=== PATIENT | female | born 1975 | race Caucasian/White ===

== ENCOUNTER 2018-01-14 05:13 | Inpatient (IN) | payer OTHER ==
[2018-01-11 14:51] LABS: BASOPHILS # (AUTO) 0.2 X10'3 (0-0.2); BASOPHILS % (AUTO) 1.8 % (0-1); EOSINOPHILS # (AUTO) 0.1 X10'3 (0-0.9); EOSINOPHILS % (AUTO) 1.4 % (0-6); LYMPHOCYTES % (AUTO) 22.1 % (21-51); MEAN CORPUSCULAR HEMOGLOBIN 27.3 PG (27.0-31.0); MEAN CORPUSCULAR HGB CONC 33.7 % (33.0-36.5); MEAN PLATELET VOLUME 7.4 FL (7.4-10.4); MONOCYTES # (AUTO) 1.3 X10'3 (0-0.9); MONOCYTES % (AUTO) 14.6 % (2-12); NEUTROPHILS # (AUTO) 5.3 X10'3 (1.8-7.7); NEUTROPHILS % (AUTO) 60.1 % (42-75); PRE OP HEMOGLOBIN 13.1 g/dL (12.0-16.0); PRE OP PLATELET COUNT 430 X10'3 (140-440); RED BLOOD COUNT 4.82 X10'6 (4.20-5.60); RED CELL DISTRIBUTION WIDTH 14.2 % (11.5-14.5)
[2018-01-11 14:59] LABS: PRE OP PARTIAL THROMB. TIME 26 SECONDS (22-35); PROTHROMBIN TIME 10.7 SECONDS (9.0-12.0)
[2018-01-11 15:05] LABS: ALBUMIN 3.6 G/DL (3.4-5.0); ALBUMIN/GLOBULIN RATIO 0.7 (1.1-1.5); ALKALINE PHOSPHATASE 114 IU/L (46-116); BLOOD UREA NITROGEN 6 MG/DL (7-18); BUN/CREATININE RATIO 8.8 (6.6-38.0); CALCIUM 9.4 MG/DL (8.5-10.1); CHLORIDE 102 MMOL/L (99-107); CREATININE 0.68 MG/DL (0.40-0.90); PRE OP ALT 29 U/L (30-65); PRE OP ANION GAP 12 (8-16); PRE OP AST 26 U/L (10-37); PRE OP BILIRUB, TOTAL 0.8 MG/DL (0.0-1.0); PRE OP GLUCOSE 85 MG/DL (70-104); PRE OP SODIUM 138 MMOL/L (135-145); TOTAL CARBON DIOXIDE 24.1 MMOL/L (24-32); TOTAL PROTEIN 8.8 G/DL (6.4-8.2); eGFR > 90 ML/MIN
[2018-01-11 15:06] LABS: PRE OP POTASSIUM 3.9 MMOL/L (3.4-5.1)
[2018-01-14] VITALS (17 sets, daily range): BP systolic 95–134; BP diastolic 52–94
[~2018-01-14] VITALS: Ht 167.6 cm; Wt 78.2 kg
[~2018-01-14 05:13] MED LIST: NO HOME MEDS; ringers solution, lacted 1,000 ML IV SCH
[2018-01-14] MEDS ORDERED: famotidine 20mg tablet PO ONE (05:30)
[2018-01-14] MEDS ORDERED: LIDOcaine 1% (10mg/ml) 2ml vial ONE (05:44)
[2018-01-14] MEDS ORDERED: ROPIVAcaine 0.5% (5mg/ml) 30ml vial ONE ×2 (06:43→07:12)
[2018-01-14] MEDS ORDERED: triamcinolone acetonide 40mg/ml inj ONE (06:43)
[2018-01-14] MEDS ORDERED: sevoflurane 250ml liquid IH ONE (07:12)
[2018-01-14] MEDS ORDERED: cloNIDine hcl/PF 100mcg/ml inj ONE (07:12)
[2018-01-14] MEDS ORDERED: fentaNYL/PF 50MCG/1 ML 2ML syringe ONE (07:14)
[2018-01-14] MEDS ORDERED: propofol inj 20 ML IV ONE (07:15)
[2018-01-14] MEDS ORDERED: LIDOcaine 2% (20mg/ml) 5ml vial ONE (07:15)
[2018-01-14] MEDS ORDERED: midazolam 2 mg/2 ml injection ONE (07:15)
[2018-01-14] MEDS ORDERED: ringers solution, lacted 1,000 ML IV SCH (07:19)
[2018-01-14] MEDS ORDERED: fentaNYL/PF 50MCG/1 ML 2ML syringe IV PRN ×2 (07:20)
[2018-01-14] MEDS ORDERED: hydrALAZINE 20mg/ml inj. IV PRN (07:20)
[2018-01-14] MEDS ORDERED: labetalol 20mg/4ml (5mg/ml) syringe IV PRN (07:20)
[2018-01-14] MEDS ORDERED: ondansetron/PF 4mg/2ml inj IV PRN ×2 (07:20→07:50)
[2018-01-14] MEDS ORDERED: morphine 4 MG/ML inj SYRINge IV PRN ×2 (07:20)
[2018-01-14] MEDS ORDERED: diphenhydrAMINE 25mg capsule PO PRN ×2 (07:50)
[2018-01-14] MEDS ORDERED: acetaminophen 325mg tablet PO PRN (07:50)
[2018-01-14] MEDS ORDERED: bisacodyl 10mg suppository rectal RC PRN (07:50)
[2018-01-14] MEDS ORDERED: magnesium hydroxide 30ml (MOM) UD suspension PO PRN (07:50)
[2018-01-14] MEDS ORDERED: HYDROmorphone 1 mg/ml syringe IV PRN ×2 (07:50)
[2018-01-14] MEDS ORDERED: oxyCODONE IR 5mg (immed. release) tablet PO PRN (07:50)
[2018-01-14] MEDS: ROPIVACAINE IJ SCH (09:31)
[2018-01-14] MEDS: NORMAL SALINE IJ SCH (09:31)
[2018-01-14] MEDS: ketorolac tromethamine 15mg/ml inj. IV SCH ×3 (10:50→20:09)
[2018-01-14] MEDS: aspirin 325mg tablet PO SCH (10:51)
[2018-01-14] MEDS: acetaminophen 325mg tablet PO SCH ×3 (10:52→20:09)
[2018-01-14] MEDS: gabapentin 300mg capsule PO SCH ×3 (10:52→20:09)
[2018-01-14] MEDS: oxyCODONE IR 5mg (immed. release) tablet PO PRN (14:18)
[2018-01-14] MEDS: sennosides 8.6mg tablet PO SCH (20:09)
[2018-01-15] MEDS: acetaminophen 325mg tablet PO SCH ×4 (01:44→20:39)
[2018-01-15] MEDS: ketorolac tromethamine 15mg/ml inj. IV SCH (01:44)
[2018-01-15 02:05] VITALS: BP 134/75
[2018-01-15] MEDS: oxyCODONE IR 5mg (immed. release) tablet PO PRN (05:29)
[2018-01-15 06:00] VITALS: BP 112/75
[2018-01-15] MEDS: aspirin 325mg tablet PO SCH (08:10)
[2018-01-15] MEDS: gabapentin 300mg capsule PO SCH ×3 (08:10→20:38)
[2018-01-15 10:00] VITALS: BP 132/77
[2018-01-15 14:00] VITALS: BP 130/70
[2018-01-15 18:00] VITALS: BP 135/78
[2018-01-15] MEDS: celeCOXIB 100mg capsule PO SCH (20:38)
[2018-01-15] MEDS: sennosides 8.6mg tablet PO SCH (20:40)
[2018-01-15 22:00] VITALS: BP 139/88
[2018-01-15] MEDS: ROPIVACAINE IJ SCH (22:12)
[2018-01-15] MEDS: NORMAL SALINE IJ SCH (22:12)
[2018-01-16] MEDS: acetaminophen 325mg tablet PO SCH (02:00)
[2018-01-16 05:00] VITALS: BP 127/86
[2018-01-16] MEDS ORDERED: acetaminophen 325mg tablet PO PRN (07:50)
[2018-01-16] MEDS: aspirin 325mg tablet PO SCH (08:39)
[2018-01-16] MEDS: gabapentin 300mg capsule PO SCH ×3 (08:39→20:56)
[2018-01-16] MEDS: celeCOXIB 100mg capsule PO SCH ×2 (08:39→20:56)
[2018-01-16 10:00] VITALS: BP 136/71
[2018-01-16] MEDS: oxyCODONE IR 5mg (immed. release) tablet PO PRN ×3 (12:02→23:21)
[2018-01-16 18:30] VITALS: BP 123/98
[2018-01-16] MEDS: sennosides 8.6mg tablet PO SCH (21:00)
[2018-01-16 22:00] VITALS: BP 140/77
[2018-01-17] MEDS: oxyCODONE IR 5mg (immed. release) tablet PO PRN ×2 (03:50→12:25)
[2018-01-17 06:00] VITALS: BP 140/72
[2018-01-17] MEDS ORDERED: cpm (06:47)
[2018-01-17] MEDS ORDERED: HYDR-565 PO (07:34)
[2018-01-17] MEDS: aspirin 325mg tablet PO SCH (08:25)
[2018-01-17] MEDS ORDERED: HYDROcodone/acetaminophen 10/325mg tab PO PRN ×2 (08:25)
[2018-01-17] MEDS: gabapentin 300mg capsule PO SCH ×2 (08:27→12:25)
[2018-01-17] MEDS: celeCOXIB 100mg capsule PO SCH (08:27)
[2018-01-17 10:00] VITALS: BP 139/92
[2018-01-17] MEDS: ROPIVACAINE IJ SCH (11:45)
[2018-01-17] MEDS: NORMAL SALINE IJ SCH (11:45)
== END 2018-01-17 13:10 | disposition home or self-care (01) | DRG 560 ==
LOC: PAS 05:13 → ORTHO 4S 07:50
PROVIDERS: ADMIT Orthopaedic Surgery; ATTEND Orthopaedic Surgery
PROC: 3E0U33Z Introduction of Anti-inflammatory into Joints, Percutaneous Approach (ICD-10-PCS; 2018-01-14)
PROC: 3E0U3BZ Introduction of Anesthetic Agent into Joints, Percutaneous Approach (ICD-10-PCS; 2018-01-14)
PROC: 0YH Anatomical Regions, Lower Extremities, Insertion (ICD-10-PCS; 2018-01-14)
PROC: 3E0T3BZ Introduction of Anesthetic Agent into Peripheral Nerves and Plexi, Percutaneous Approach (ICD-10-PCS; 2018-01-14)
PROC: 0SWCXJZ Revision of Synthetic Substitute in Right Knee Joint, External Approach (ICD-10-PCS; principal; 2018-01-14 07:17)
DX: T84.82XA Fibrosis due to internal orthopedic prosthetic devices, implants and grafts, initial encounter (principal); D68.0 Von Willebrand disease; M25.661 Stiffness of right knee, not elsewhere classified; Y83.8 Other surgical procedures as the cause of abnormal reaction of the patient, or of later complication, without mention of misadventure at the time of the procedure; Z90.49 Acquired absence of other specified parts of digestive tract; Z98.891 History of uterine scar from previous surgery; Z56.0 Unemployment, unspecified; Z88.2 Allergy status to sulfonamides; Z79.899 Other long term (current) drug therapy; Z82.49 Family history of ischemic heart disease and other diseases of the circulatory system; Y92.89 Other specified places as the place of occurrence of the external cause
CPT/HCPCS: 36415; 80053; 85025; 85610; 85730; 87070; 97110; 97116; 97162; 97530; A6212; A6257; A6449; J0735; J1885; J2001; J2250; J2704; J2795; J3010; J3301; J3490; J7030; J7120

== ENCOUNTER 2018-07-14 08:38 | Inpatient (IN) | payer OTHER ==
[2018-07-12 11:16] LABS: BASOPHILS % (AUTO) 0.6 % (0-1); EOSINOPHILS # (AUTO) 0.2 X10'3 (0-0.9); EOSINOPHILS % (AUTO) 2.8 % (0-6); LYMPHOCYTES # (AUTO) 1.7 X10'3 (1.1-4.8); LYMPHOCYTES % (AUTO) 27.4 % (21-51); MEAN CORPUSCULAR HEMOGLOBIN 26.5 PG (27.0-31.0); MEAN CORPUSCULAR HGB CONC 32.5 % (33.0-36.5); MEAN CORPUSCULAR VOLUME 81.4 FL (78-98); MEAN PLATELET VOLUME 7.3 FL (7.4-10.4); MONOCYTES # (AUTO) 0.8 X10'3 (0-0.9); MONOCYTES % (AUTO) 13.1 % (2-12); NEUTROPHILS # (AUTO) 3.5 X10'3 (1.8-7.7); NEUTROPHILS % (AUTO) 56.1 % (42-75); PRE OP HEMATOCRIT 40.7 % (35.0-45.0); PRE OP HEMOGLOBIN 13.3 g/dL (12.0-16.0); PRE OP PLATELET COUNT 435 X10'3 (140-440); RED BLOOD COUNT 5.01 X10'6 (4.20-5.60); RED CELL DISTRIBUTION WIDTH 15.8 % (11.5-14.5)
[2018-07-12 11:31] LABS: ALBUMIN 3.8 G/DL (3.4-5.0); ALBUMIN/GLOBULIN RATIO 0.8 (1.1-1.5); ALKALINE PHOSPHATASE 96 IU/L (46-116); BLOOD UREA NITROGEN 8 MG/DL (7-18); BUN/CREATININE RATIO 10.1 (6.6-38.0); CALCIUM 9.2 MG/DL (8.5-10.1); CHLORIDE 102 MMOL/L (99-107); CREATININE 0.79 MG/DL (0.40-0.90); PRE OP ALT 37 U/L (30-65); PRE OP ANION GAP 9 (8-16); PRE OP AST 25 U/L (10-37); PRE OP BILIRUB, TOTAL 0.8 MG/DL (0.0-1.0); PRE OP GLUCOSE 98 MG/DL (70-104); PRE OP POTASSIUM 4.2 MMOL/L (3.4-5.1); PRE OP SODIUM 139 MMOL/L (135-145); TOTAL CARBON DIOXIDE 28.4 MMOL/L (24-32); TOTAL PROTEIN 8.6 G/DL (6.4-8.2); eGFR 80 ML/MIN
[2018-07-12 11:33] LABS: PRE OP INR 1.1 INR; PRE OP PROTIME 10.8 SECONDS (9.0-12.0)
[2018-07-12 11:49] LABS: HCG SERUM QL NEGATIVE
[2018-07-14] VITALS (18 sets, daily range): BP systolic 100–132; BP diastolic 59–93
[~2018-07-14] VITALS: Ht 167.6 cm; Wt 81.9 kg
[~2018-07-14 08:38] MED LIST changes: +cefazolin/dext.iso 2gm/50ml 50 ML IV ONE; +desmopressin inj. 25 MCG in normal saline 100ml IV soln 93.75 ML IV ONE; +famotidine 20mg tablet PO ONE; +tranexamic acid inj. 1,000 MG in normal saline 100ml IV soln 90 ML IV ONE; +vancomycin inj 1,500 MG in normal saline 300ml IV soln IV ONE
[2018-07-14] MEDS ORDERED: LIDOcaine 1% (10mg/ml) 2ml vial ONE (08:43)
[2018-07-14] MEDS ORDERED: tranexamic acid inj. 1,000 MG in normal saline 100ml IV soln 100 ML IV ONE (09:45)
[2018-07-14] MEDS ORDERED: [UNRECOGNIZED DRUG - REMARK] IV NR (10:00)
[2018-07-14] MEDS ORDERED: vancomycin 1,000mg inj ONE (10:52)
[2018-07-14] MEDS ORDERED: ROPIVAcaine 0.5% (5mg/ml) 30ml vial ONE ×2 (10:52→16:08)
[2018-07-14] MEDS ORDERED: ketorolac trometh. 30mg/ml inj. ONE (10:52)
[2018-07-14] MEDS ORDERED: fentaNYL/PF 50MCG/1 ML 2ML syringe ONE (12:43)
[2018-07-14] MEDS ORDERED: MIDAZolam 1mg/ml 10ml vial ONE (12:43)
[2018-07-14] MEDS ORDERED: propofol inj 20 ML IV ONE ×2 (13:10→16:08)
[2018-07-14] MEDS ORDERED: ringers solution, lacted 1,000 ML IV SCH (15:18)
[2018-07-14] MEDS ORDERED: meperidine/PF 25mg/ml syringe IV PRN ×3 (15:20)
[2018-07-14] MEDS ORDERED: morphine 4 MG/ML inj SYRINge IV PRN ×2 (15:20)
[2018-07-14] MEDS ORDERED: proCHLORperazine 10 MG/2 ml inj IV PRN (15:20)
[2018-07-14] MEDS ORDERED: ondansetron/PF 4mg/2ml inj IV PRN (15:20)
[2018-07-14] MEDS ORDERED: bisacodyl 10mg suppository rectal RC PRN (15:45)
[2018-07-14] MEDS ORDERED: diphenhydrAMINE 25mg capsule PO PRN ×2 (15:45)
[2018-07-14] MEDS ORDERED: oxyCODONE IR 5mg (immed. release) tablet PO PRN (15:45)
[2018-07-14] MEDS ORDERED: acetaminophen 325mg tablet PO PRN (15:45)
[2018-07-14] MEDS ORDERED: HYDROmorphone 1 mg/ml syringe IV PRN ×2 (15:45)
[2018-07-14] MEDS ORDERED: magnesium hydroxide 30ml (MOM) UD suspension PO PRN (15:45)
[2018-07-14] MEDS: ROPIVACAINE HCL/PF PAIN PUMP 400 ML IJ SCH ×2 (16:45→19:01)
[2018-07-14] MEDS: ceFAZolin 1GM/D5W- ADD-VANTAGE 50 ML IV SCH (18:29)
[2018-07-14] MEDS ORDERED: tranexamic acid inj. 800 MG in normal saline 100ml IV soln 100 ML IV ONE (18:45)
[2018-07-14] MEDS: ondansetron/PF 4mg/2ml inj IV PRN (19:58)
[2018-07-14] MEDS ORDERED: vancomycin/NS 1 GM ADD-VANTAGE 250 ML IV SCH (20:00)
[2018-07-14] MEDS: potassium cl 20mEq in 1/2 NS 1,000 ML IV SCH ×2 (20:04→23:43)
[2018-07-14] MEDS: acetaminophen 325mg tablet PO SCH (20:08)
[2018-07-14] MEDS: ketorolac tromethamine 15mg/ml inj. IV SCH (20:08)
[2018-07-14] MEDS: sennosides 8.6mg tablet PO SCH (20:28)
[2018-07-14] MEDS: gabapentin 300mg capsule PO SCH (20:28)
[2018-07-14] MEDS: oxyCODONE IR 5mg (immed. release) tablet PO PRN (22:51)
[2018-07-15] MEDS: ceFAZolin 1GM/D5W- ADD-VANTAGE 50 ML IV SCH (00:36)
[2018-07-15 02:00] VITALS: BP 107/62
[2018-07-15] MEDS: acetaminophen 325mg tablet PO SCH ×4 (02:22→20:15)
[2018-07-15] MEDS: ketorolac tromethamine 15mg/ml inj. IV SCH ×3 (02:22→15:01)
[2018-07-15] MEDS: oxyCODONE IR 5mg (immed. release) tablet PO PRN ×5 (04:56→21:08)
[2018-07-15] MEDS: potassium cl 20mEq in 1/2 NS 1,000 ML IV SCH (05:51)
[2018-07-15 06:00] VITALS: BP 115/88
[2018-07-15 06:30] LABS: BASOPHILS % (AUTO) 0.2 % (0-1); EOSINOPHILS % (AUTO) 0.2 % (0-6); LYMPHOCYTES # (AUTO) 1.2 X10'3 (1.1-4.8); LYMPHOCYTES % (AUTO) 11.7 % (21-51); MEAN CORPUSCULAR HEMOGLOBIN 26.9 PG (27.0-31.0); MEAN CORPUSCULAR HGB CONC 33.3 % (33.0-36.5); MEAN CORPUSCULAR VOLUME 80.5 FL (78-98); MEAN PLATELET VOLUME 7.2 FL (7.4-10.4); MONOCYTES # (AUTO) 0.9 X10'3 (0-0.9); MONOCYTES % (AUTO) 9.1 % (2-12); NEUTROPHILS # (AUTO) 8.2 X10'3 (1.8-7.7); NEUTROPHILS % (AUTO) 78.8 % (42-75); PLATELET COUNT 265 X10'3 (140-440); RED BLOOD COUNT 3.35 X10'6 (4.20-5.60); WHITE BLOOD COUNT 10.4 X10'3 (4.5-11.0)
[2018-07-15] MEDS: ondansetron/PF 4mg/2ml inj IV PRN ×2 (06:46→12:49)
[2018-07-15 07:03] LABS: ANION GAP 7 (8-16); CHLORIDE 98 MMOL/L (99-107); POTASSIUM 3.8 MMOL/L (3.5-5.1); SODIUM 129 MMOL/L (135-145); TOTAL CARBON DIOXIDE 23.6 MMOL/L (24-32)
[2018-07-15] MEDS ORDERED: metoclopramide 5 mg/ml inj IV ONE (08:15)
[2018-07-15] MEDS: gabapentin 300mg capsule PO SCH ×3 (08:54→20:15)
[2018-07-15] MEDS: aspirin 325mg tablet PO SCH (08:54)
[2018-07-15 10:00] VITALS: BP 122/65
[2018-07-15 14:00] VITALS: BP 120/60
[2018-07-15] MEDS ORDERED: scopolamine 1.5mg patch.TD72 TD ONE (17:15)
[2018-07-15 18:00] VITALS: BP 138/79
[2018-07-15] MEDS: celeCOXIB 100mg capsule PO SCH (20:14)
[2018-07-15] MEDS: sennosides 8.6mg tablet PO SCH (20:14)
[2018-07-15 22:00] VITALS: BP 138/65
[2018-07-16] MEDS: acetaminophen 325mg tablet PO SCH ×3 (01:13→14:29)
[2018-07-16] MEDS: oxyCODONE IR 5mg (immed. release) tablet PO PRN ×5 (01:13→22:18)
[2018-07-16 06:00] VITALS: BP 110/82
[2018-07-16 06:36] LABS: BASOPHILS % (AUTO) 0.1 % (0-1); EOSINOPHILS # (AUTO) 0.2 X10'3 (0-0.9); EOSINOPHILS % (AUTO) 2.2 % (0-6); HEMATOCRIT 25.6 % (35.0-45.0); HEMOGLOBIN 8.6 g/dl (12.0-16.0); LYMPHOCYTES # (AUTO) 1.4 X10'3 (1.1-4.8); LYMPHOCYTES % (AUTO) 17.5 % (21-51); MEAN CORPUSCULAR HEMOGLOBIN 27.1 PG (27.0-31.0); MEAN CORPUSCULAR HGB CONC 33.7 % (33.0-36.5); MEAN CORPUSCULAR VOLUME 80.3 FL (78-98); MEAN PLATELET VOLUME 7.2 FL (7.4-10.4); MONOCYTES # (AUTO) 1.1 X10'3 (0-0.9); MONOCYTES % (AUTO) 13.6 % (2-12); NEUTROPHILS # (AUTO) 5.4 X10'3 (1.8-7.7); NEUTROPHILS % (AUTO) 66.6 % (42-75); PLATELET COUNT 267 X10'3 (140-440); RED BLOOD COUNT 3.19 X10'6 (4.20-5.60); RED CELL DISTRIBUTION WIDTH 15.1 % (11.5-14.5); WHITE BLOOD COUNT 8.1 X10'3 (4.5-11.0)
[2018-07-16] MEDS: celeCOXIB 100mg capsule PO SCH ×2 (08:14→22:16)
[2018-07-16] MEDS: gabapentin 300mg capsule PO SCH ×3 (08:14→22:16)
[2018-07-16] MEDS: aspirin 325mg tablet PO SCH (08:14)
[2018-07-16] MEDS ORDERED: acetaminophen 325mg tablet PO PRN (15:45)
[2018-07-16 18:00] VITALS: BP 129/61
[2018-07-16 22:00] VITALS: BP 136/84
[2018-07-16] MEDS: sennosides 8.6mg tablet PO SCH (22:16)
[2018-07-16] MEDS: ondansetron/PF 4mg/2ml inj IV PRN (22:37)
[2018-07-17] MEDS: oxyCODONE IR 5mg (immed. release) tablet PO PRN ×2 (02:06→05:49)
[2018-07-17 06:00] VITALS: BP 109/68
[2018-07-17 07:14] LABS: BASOPHILS % (AUTO) 0.1 % (0-1); EOSINOPHILS # (AUTO) 0.1 X10'3 (0-0.9); EOSINOPHILS % (AUTO) 1.5 % (0-6); HEMATOCRIT 29.6 % (35.0-45.0); HEMOGLOBIN 9.7 g/dl (12.0-16.0); LYMPHOCYTES # (AUTO) 0.9 X10'3 (1.1-4.8); LYMPHOCYTES % (AUTO) 11.5 % (21-51); MEAN CORPUSCULAR HEMOGLOBIN 26.6 PG (27.0-31.0); MEAN CORPUSCULAR HGB CONC 32.8 % (33.0-36.5); MEAN CORPUSCULAR VOLUME 81.2 FL (78-98); MEAN PLATELET VOLUME 7.5 FL (7.4-10.4); MONOCYTES # (AUTO) 0.9 X10'3 (0-0.9); MONOCYTES % (AUTO) 12.1 % (2-12); NEUTROPHILS # (AUTO) 5.6 X10'3 (1.8-7.7); NEUTROPHILS % (AUTO) 74.8 % (42-75); PLATELET COUNT 314 X10'3 (140-440); RED BLOOD COUNT 3.64 X10'6 (4.20-5.60); RED CELL DISTRIBUTION WIDTH 15.4 % (11.5-14.5); WHITE BLOOD COUNT 7.5 X10'3 (4.5-11.0)
[2018-07-17] MEDS: celeCOXIB 100mg capsule PO SCH (07:37)
[2018-07-17] MEDS: gabapentin 300mg capsule PO SCH ×2 (07:37→13:02)
[2018-07-17] MEDS: aspirin 325mg tablet PO SCH (07:38)
[2018-07-17 10:00] VITALS: BP 114/58
== END 2018-07-17 14:30 | disposition home or self-care (01) | DRG 467 ==
LOC: PAS IN 08:38 → EDSTATUS 15:00 → ORTHO 4S 17:35
PROVIDERS: ADMIT Orthopaedic Surgery; ATTEND Orthopaedic Surgery
PROC: 0SRV0J9 Replacement of Right Knee Joint, Tibial Surface with Synthetic Substitute, Cemented, Open Approach (ICD-10-PCS; 2018-07-14)
PROC: 3E0T3BZ Introduction of Anesthetic Agent into Peripheral Nerves and Plexi, Percutaneous Approach (ICD-10-PCS; 2018-07-14)
PROC: 8E0YXBZ Computer Assisted Procedure of Lower Extremity (ICD-10-PCS; 2018-07-14)
PROC: 8E0YXCZ Robotic Assisted Procedure of Lower Extremity (ICD-10-PCS; 2018-07-14)
PROC: 0S9C3ZZ Drainage of Right Knee Joint, Percutaneous Approach (ICD-10-PCS; 2018-07-14)
PROC: 0SPV0JZ Removal of Synthetic Substitute from Right Knee Joint, Tibial Surface, Open Approach (ICD-10-PCS; principal; 2018-07-14 12:38)
DX: T84.82XA Fibrosis due to internal orthopedic prosthetic devices, implants and grafts, initial encounter (principal); D62 Acute posthemorrhagic anemia; D68.9 Coagulation defect, unspecified; Z96.651 Presence of right artificial knee joint; M21.261 Flexion deformity, right knee; M25.661 Stiffness of right knee, not elsewhere classified; Z79.899 Other long term (current) drug therapy; Z88.2 Allergy status to sulfonamides; Z82.49 Family history of ischemic heart disease and other diseases of the circulatory system; Z72.89 Other problems related to lifestyle; Y92.89 Other specified places as the place of occurrence of the external cause
CPT/HCPCS: 36415; 80051; 80053; 84703; 85025; 85610; 85730; 87070; 87075; 87176; 97110; 97116; 97162; 97530; A7000; A9272; C1713; C1758; C1776; G0378; J0690; J1170; J1885; J2250; J2405; J2597; J2704; J2765; J2795; J3010; J3370; J3490; J7030; J7120

== ENCOUNTER 2022-05-14 07:24 | Day surgery (SDC) | payer MEDICAID ==
[2022-05-07 15:55] LABS: BASOPHILS % (AUTO) 0.6 % (0-1); EOSINOPHILS # (AUTO) 0.2 X10'3 (0-0.9); EOSINOPHILS % (AUTO) 3.7 % (0-6); LYMPHOCYTES # (AUTO) 2.2 X10'3 (1.1-4.8); MEAN CORPUSCULAR HEMOGLOBIN 26.6 PG (27.0-31.0); MEAN CORPUSCULAR HGB CONC 33.3 g/dL (33.0-36.5); MEAN CORPUSCULAR VOLUME 79.9 FL (78-98); MEAN PLATELET VOLUME 6.9 FL (7.4-10.4); MONOCYTES # (AUTO) 0.8 X10'3 (0-0.9); MONOCYTES % (AUTO) 14.3 % (2-12); NEUTROPHILS # (AUTO) 2.4 X10'3 (1.8-7.7); NEUTROPHILS % (AUTO) 43.4 % (42-75); PRE OP HEMATOCRIT 39.7 % (35.0-45.0); PRE OP HEMOGLOBIN 13.2 g/dL (12.0-16.0); PRE OP PLATELET COUNT 388 X10'3 (140-440); RED BLOOD COUNT 4.96 X10'6 (4.20-5.60); RED CELL DISTRIBUTION WIDTH 14.7 % (11.5-14.5)
[2022-05-07 16:04] LABS: CLARITY,URINE SLIGHTLY CLOUDY (Clear); GLUCOSE, URINE NEGATIVE (Neg); KETONES,URINE NEGATIVE (Neg); LEUKOCYTE ESTERASE ,URINE TRACE (Neg); NITRITES, URINE NEGATIVE (Neg); OCCULT BLOOD,URINE NEGATIVE (Neg); PROTEIN,URINE NEGATIVE (Neg); UROBILINOGEN,URINE 0.2 E.U/dL (0.2-1.0)
[2022-05-07 16:08] LABS: COLOR,URINE STRAW (Yellow); UA COLLECTION TYPE VOIDED
[2022-05-07 16:09] LABS: ALBUMIN 3.8 G/DL (3.4-5.0); ALBUMIN/GLOBULIN RATIO 0.8 (1.1-1.5); ALKALINE PHOSPHATASE 112 IU/L (46-116); BLOOD UREA NITROGEN 5 MG/DL (7-18); BUN/CREATININE RATIO 6.3 (6.6-38.0); CALCIUM 9.1 MG/DL (8.5-10.1); CHLORIDE 104 MMOL/L (99-107); CREATININE 0.79 MG/DL (0.40-0.90); PRE OP ALT 30 U/L (30-65); PRE OP ANION GAP 6 (8-16); PRE OP AST 30 U/L (10-37); PRE OP BILIRUB, TOTAL 0.6 MG/DL (0.0-1.0); PRE OP GLUCOSE 83 MG/DL (70-104); PRE OP SODIUM 137 MMOL/L (135-145); TOTAL CARBON DIOXIDE 27.2 MMOL/L (24-32); TOTAL PROTEIN 8.5 G/DL (6.4-8.2); eGFR 78 ML/MIN
[2022-05-07 16:16] LABS: PRE OP POTASSIUM 3.3 MMOL/L (3.4-5.1)
[2022-05-07 16:17] LABS: HCG SERUM QL NEGATIVE
[2022-05-07 16:25] LABS: SQUAMOUS EPITHELIAL CELL,UR MODERATE /LPF (FEW)
[2022-05-07 16:26] LABS: BACTERIA,URINE FEW /HPF (Neg); RBC,URINE 0-2 /HPF (0-2); WBC,URINE 0-4 /HPF (0-4)
[2022-05-14] VITALS (16 sets, daily range): BP systolic 123–154; BP diastolic 69–98
[~2022-05-14] VITALS: Ht 160 cm; Wt 81.5 kg
[~2022-05-14 07:24] MED LIST changes: +AMIT-189 PO; -NO HOME MEDS; +[UNRECOGNIZED DRUG - OTHER] SQ; +ceFOXitin 2GM-NS 100mL ADDvant 100 ML IV ONE; -cefazolin/dext.iso 2gm/50ml 50 ML IV ONE; -desmopressin inj. 25 MCG in normal saline 100ml IV soln 93.75 ML IV ONE; -tranexamic acid inj. 1,000 MG in normal saline 100ml IV soln 90 ML IV ONE; -vancomycin inj 1,500 MG in normal saline 300ml IV soln IV ONE
[2022-05-14 08:49] LABS: ISTAT ANION GAP 14 (8-12); ISTAT BUN 7 mg/dL (7-18); ISTAT CL 101 mmol/L (99-107); ISTAT CREATININE 0.7 mg/dL (0.6-1.1); ISTAT GLUCOSE 89 mg/dL (70-104); ISTAT HGB 13.9 g/dl (12.0-16.0); ISTAT Hct 41 %PCV (35-45); ISTAT IONIZED CALCIUM 1.22 mmol/L (1.03-1.32); ISTAT K 3.4 mmol/L (3.5-5.1); ISTAT NA 141 mmol/L (135-145); ISTAT TOTAL CO2 26 mmol/L (24-32); ISTAT eGFR > 90 ML/MIN
[2022-05-14] MEDS ORDERED: neomy sulf/polymyxin B sulf. GU irrigation 1ml amp IR ONE (08:52)
[2022-05-14] MEDS ORDERED: BUPIVAcaine/PF 2.5 mg/ml (0.25%) 30ml vial ONE (08:52)
[2022-05-14] MEDS ORDERED: vasoPRESSIN 20 units/ml inj. ONE (08:52)
[2022-05-14] MEDS ORDERED: glycopyrrolate 0.2mg/ml inj ONE (09:37)
[2022-05-14] MEDS ORDERED: propofol inj 20 ML IV ONE (09:37)
[2022-05-14] MEDS ORDERED: neostigmine methylsulfate 1 MG/ML 10ml vial ONE (09:37)
[2022-05-14] MEDS ORDERED: dexamethasone sod phosphate 4mg/ml inj. ONE (09:37)
[2022-05-14] MEDS ORDERED: ondansetron/PF 4mg/2ml inj ONE (09:37)
[2022-05-14] MEDS ORDERED: LIDOcaine 2% (20mg/ml) 5ml vial ONE (09:37)
[2022-05-14] MEDS ORDERED: rocuronium 10mg/ml inj IV ONE ×2 (09:37→11:02)
[2022-05-14] MEDS ORDERED: sevoflurane 250ml liquid IH ONE (10:10)
[2022-05-14] MEDS ORDERED: fentaNYL /PF 50mcg/ml 5ml ampule ONE (10:11)
[2022-05-14] MEDS ORDERED: midazolam 1 mg/ML 2ml injection ONE (10:11)
[2022-05-14] MEDS ORDERED: labetalol 20mg/4ml (5mg/ml) syringe IV ONE ×2 (10:26→11:20)
[2022-05-14] MEDS ORDERED: labetalol 20mg/4ml (5mg/ml) syringe IV PRN (11:15)
[2022-05-14] MEDS ORDERED: fentaNYL/PF 50MCG/1 ML 2ML syringe IV PRN ×2 (11:15)
[2022-05-14] MEDS ORDERED: morphine 4 MG/ML inj SYRINge IV PRN (11:15)
[2022-05-14] MEDS ORDERED: morphine 2 MG/ML inj. syringe IV PRN (11:15)
[2022-05-14] MEDS ORDERED: hydrALAZINE 20mg/ml inj. IV PRN (11:15)
[2022-05-14] MEDS ORDERED: ondansetron/PF 4mg/2ml inj IV PRN ×2 (11:15→12:30)
[2022-05-14] MEDS ORDERED: ringers solution, lacted 1,000 ML IV SCH ×2 (11:15→12:30)
[2022-05-14] MEDS ORDERED: ketorolac trometh. 30mg/ml inj. IV PRN (12:30)
[2022-05-14] MEDS ORDERED: HYDROcodone/acetaminophen 10/325mg tab PO PRN ×2 (12:30)
[2022-05-14] MEDS ORDERED: metoclopramide 5 mg/ml inj IV PRN (12:30)
[2022-05-14] MEDS ORDERED: normal saline 500ml IV soln 500 ML IV PRN (12:30)
[2022-05-14] MEDS ORDERED: temazepam 15mg capsule PO PRN (12:30)
[2022-05-14] MEDS ORDERED: LORazepam 2 mg/ml vial IV PRN (12:30)
[2022-05-14] MEDS ORDERED: diphenhydrAMINE 50 mg/ml inj IV PRN (12:30)
[2022-05-14] MEDS ORDERED: magnesium hydroxide 30ml (MOM) UD suspension PO PRN (12:30)
--- NOTE | 2022-05-14 12:44 | NUR ---
Received from OR via HOSPITAL BED, accompanied by Anesthesiologist DR MOISE and report given by Anesthesiologist. PT IS STILL VERY SLEEPY AND RESPONDS TO PAINFUL STIMULI THEN DRIFTS BACK TO SLEEP. PT PLACED ON BEDSIDE MONITOR AND VSS. PT RECEIVING 8L O2 TO MASK AND TOLERATING WELL, O2 SAT > 96%. PT RR IS 14-17. WILL TITRATE O2 DOWN PT TOLERATES. PT HAS 20G PIV TO LEFT FOREARM WITH LR INFUSING @ 100ML/HR ORDERED. PT HAS 3 SMALL LOWER ABDOMEN INCISION SITES THAT ARE CDI, SEAN PAD WITH MESH BRIEF IS CDI. PT RESTING COMFORTABLY. WILL CONTINUE TO ASSESS.
--- NOTE | 2022-05-14 12:44 | NUR ---
Received from OR via HOSPITAL BED, accompanied by Anesthesiologist DR MOISE and report given by Anesthesiologist. PT IS STILL SLEEPY. PT PLACED ON BEDSIDE MONITOR AND VSS. PT RECEIVING 8L O2 TO MASK AND TOLERATING WELL, O2 SAT > 96%. WILL TITRATE O2 DOWN PT TOLERATES. PT HAS 20G PIV TO LEFT FOREARM WITH LR INFUSING @ 100ML/HR ORDERED. PT HAS 3 SMALL INCISION SITES LOWER ABD THAT ARE CDI, SEAN PAD IS CDI. PT RESTING COMFORTABLY. WILL CONTINUE TO ASSESS. GARCIA CATHETER DRAINING CLEAR YELLOW URINE. Addendum: 05/14/22 at 1259 by Sukhi Cavazos RN Amended: Links added.
--- NOTE | 2022-05-14 14:30 | NUR ---
PATIENT DECIDED TO GO HOME TODAY, CLAMPED GARCIA CATHETER, INJECTED WITH 300 CC OF NORMAL SALINE, DISCONTINUED GARCIA. PATIENT URINATED AND PERFORMED BLADDER SCANNER. URINE RESIDUAL = 1 CC NOTED. PATIENT IS OKAYED TO GO HOME.
--- NOTE | 2022-05-14 14:59 | NUR ---
ALL DISCHARGE CRITERIA HAS BEEN MET. VSS, PAIN AT A TOLERABLE LEVEL, VOIDING AND ABLE TO SAFELY AMBULATE AND TRANSFER SELF. IV TAKEN OUT WITHOUT ANY COMPLICATIONS. ALL DISCHARGE INSTRUCTIONS COVERED WITH PATIENT AND ALL QUESTIONS ANSWERED. PATIENT TAKEN OUT VIA WHEELCHAIR WITH ALL BELONGINGS TO PERSONAL VEHICLE WHERE FAMILY DROVE PATIENT HOME. Addendum: 05/14/22 at 1517 by Sukhi Cavazos RN Amended: Links added.
[2022-05-14] MEDS ORDERED: docusate sod 100mg capsule PO SCH (20:00)
[2022-05-14] MEDS ORDERED: amitriptyline 50mg tablet PO SCH (21:00)
[2022-05-15] MEDS ORDERED: enoxaparin 40mg/0.4ml syringe SQ SCH (08:00)
== END 2022-05-14 14:59 | disposition home or self-care (01) ==
LOC: PAS 07:24
PROVIDERS: ATTEND Obstetrics & Gynecology Obstetrics
DX: N93.9 Abnormal uterine and vaginal bleeding, unspecified (principal); N94.6 Dysmenorrhea, unspecified; N80.03 Adenomyosis of the uterus; Z79.899 Other long term (current) drug therapy; G43.909 Migraine, unspecified, not intractable, without status migrainosus
CPT/HCPCS: 36415; 58552; 80047; 80053; 81001; 82948; 84703; 85025; 86870; 86880; 86885; 86900; 86901; 86902; 86922; 87081; 87088; J0694; J1100; J2250; J2270; J2405; J2704; J2710; J3010; J3490; J7030; J7040; J7120; Z7506; Z7508; Z7512; 86905; A4314; A4615; A4618; A7000